=== PATIENT | female | born 1970 | race Caucasian/White ===

== ENCOUNTER 2016-12-30 15:21 | Emergency (ER) | payer BC, MEDICAID ==
--- NOTE | 2016-12-30 15:37 | ER Document Report ---
HPI - HPI Patient complains to provider of: right sided sciatica Onset: Other - 6 years Onset/Duration: Persistent Quality of pain: Achy, Burning, Throbbing Pain Level: 4 Context: 46-year-old female who moved here and is complaining of right sided sciatica that she has had for 6 years. Her chronic pain benefits manager prescribes 90 oxycodone 7.5 mg monthly from [place] that she ran out of early. There is no saddle anesthesia. No IV drug use. No fever or chills. Associated Symptoms: None Exacerbated by: Walking Relieved by: Other - She states is 7.5 mg oxycodone she is now having to take 4 times a day and that's why she ran out early Similar symptoms previously: Yes Recently seen / treated by doctor: No - November 06 - ROS ROS below otherwise negative: Yes Systems Reviewed and Negative: Yes All other systems reviewed and negative - DERM Skin Color: Normal, [place] Past Medical History - General Information source: Patient - Social History Smoking Status: Current Every Day Smoker Frequency of alcohol use: None Drug Abuse: None Lives with: Spouse/Significant other Family History: Reviewed & Not Pertinent Renal/ Medical History: Denies: Hx Peritoneal Dialysis Musculoskeltal Medical History: Reports Other - Chronic back pain with right sided sciatica Surgical Hx: Negative Vertical Provider Document - CONSTITUTIONAL Agree With Documented VS: Yes General Appearance: Mild Distress - INFECTION CONTROL TRAVEL OUTSIDE OF THE [place] IN LAST 30 DAYS: No - HEENT HEENT: Normocephalic - NECK Neck: Supple - RESPIRATORY Respiratory: Breath Sounds Normal, No Respiratory Distress O2 Sat by Pulse Oximetry: 96 - CARDIOVASCULAR Cardiovascular: Regular Rate, Regular Rhythm - GI/ABDOMEN Gastrointestinal: Abdomen Soft, Abdomen Non-Tender - BACK Back: Normal Inspection Notes: Tender over the right sacral iliac joint and right mid buttocks - MUSCULOSKELETAL/EXTREMETIES Musculoskeletal/Extremeties: MAEW, FROM, Tender - See above - NEURO Level of Consciousness: Awake, Alert, Appropriate Motor/Sensory: No Motor Deficit, No Sensory Deficit Deep Tendon Reflexes: 2+ - Bilateral ankle and patellar - DERM Integumentary: Warm, Dry, No Rash Course - Re-evaluation Re-evalutation: 12/30/16 16:24 I got the patient to walk and bear weight on her right leg although she walks bent forward with a slow deliberate gait. She states this is not abnormal. - Vital Signs Vital signs: Temp Pulse Resp BP Pulse Ox 97.8 F 123 H 18 108/89 H 96 12/30/16 15:28 12/30/16 15:28 12/30/16 15:28 12/30/16 15:28 12/30/16 15:28 Discharge - Discharge Clinical Impression: chronic back pain Sciatica Qualifiers: Laterality: right Qualified Code(s): M54.31 - Sciatica, right side Condition: Good Instructions: Chronic Back Pain ([facility]), Family Physicians / Practices, Muscle Relaxers ([facility]), Pain Management, Pain Medication Injection ([facility]), Sciatica ([facility]) , Steroid Medication Additional Instructions: warm compress to er any concerns we do not treat chronic pain in the ER please call your pain management dr in [facility] and explain that you ran out early due to increased pain and had to take 4 per day, get appt earlier than January 06. referral to dr. de la rosa her in [place] since you are moving here, get appt as soon as possible, number given on dc instructions Please complete the patient satisfaction survey if you get one, and return it.. If you do not receive a survey, then you can go to the [facility] website, [email or web address] and place your comments about your very good care. Thank you very much. It was a pleasure being your medical provider today. Prescriptions: Methocarbamol [Robaxin 750 mg Tablet] 750 mg PO Q4 #40 tablet Prednisone [Deltasone 10 mg Tablet] 10 mg PO ASDIR PRN #21 tablet PRN Reason: Tramadol HCl [Ultram 50 mg Tablet] 50 mg PO ASDIR PRN #20 tablet PRN Reason: Referrals: GURPREET DE LA ROSA MD [ACTIVE STAFF] - Follow up as needed
[2016-12-30] MEDS ORDERED: ONDANSETRON 4 MG TAB.RAPDIS PO ONE (15:49)
[2016-12-30] MEDS ORDERED: HYDROMORPHONE HCL INJ/PF 2 MG/ML AMPULE IM ONE (15:49)
[2016-12-30] MEDS ORDERED: PREDNISONE 20 MG TABLET PO ONE (16:21)
[2016-12-30 16:39] VITALS: BP 110/70
== END 2016-12-30 16:39 | disposition home or self-care (01) ==
LOC: ER 15:21
DX: M54.41 Lumbago with sciatica, right side (principal); G89.29 Other chronic pain; M54.9 Dorsalgia, unspecified; F17.200 Nicotine dependence, unspecified, uncomplicated
CPT/HCPCS: 99283; 96372; S0119; J1170; J7512

== ENCOUNTER 2017-01-04 20:45 | Emergency (ER) | payer SELFPAY ==
[2017-01-04] MEDS ORDERED: FENTANYL CITRATE INJ/PF 100 MCG/2 ML AMPUL IV ONE (23:49)
[2017-01-04] MEDS ORDERED: DEXAMETHASONE SOD PHOS INJ 10 MG/1 ML VIAL IV ONE (23:49)
--- NOTE | 2017-01-04 23:50 | ER Document Report ---
ED General - General Chief Complaint: Fall, R hip, leg and foot pain Stated Complaint: FALL,LEFT LEG PAIN,BACK PAIN Notes: Patient's 46-year-old female who presents with complaint of fall. Patient has a history of sciatica and pain in her right leg. Patient says that today she fell onto her right side and now has pain that shoots from her right hip into right leg. She will left on her chief complaint no; however, the patient shows me her pain is in her right hip and leg. She says she has a history of chronic pain issues with chronic sciatic nerve impingement on right side. She says since the fall she's unable to bear weight due to the pain. She denies any numbness and her leg. She says she has pains that shooting up and down the leg from the hip. No fevers. No infections. No history of surgery. She has not yet seen a surgeon about her pain. She says she is waiting for her Medicaid to come through. She is on pain management. She said she did take Neurontin as well as oxycodone prior to coming into the ER. No loss of bowel control. No urinary retention. No saddle anesthesia. No other complaints at this time. TRAVEL OUTSIDE OF THE [place]. IN LAST 30 DAYS: No - Related Data Allergies/Adverse Reactions: butorphanol [From Stadol] Allergy (Verified 12/30/16 16:05) Past Medical History - Social History Smoking Status: Unknown if Ever Smoked Frequency of alcohol use: None Drug Abuse: None Family History: Reviewed & Not Pertinent Renal/ Medical History: Denies: Hx Peritoneal Dialysis Past Surgical History: Reports: Hx Appendectomy, Hx Cholecystectomy, Hx Hysterectomy - Immunizations Hx Diphtheria, Pertussis, Tetanus Vaccination: Yes Review of Systems - Review of Systems Notes: My Normal Review Basic REVIEW OF SYSTEMS: CONSTITUTIONAL : Denies fever, chills, or sweats. Denies recent illness. RESPIRATORY: Denies cough, cold, or chest congestion. Denies shortness of breath, difficulty breathing, or wheezing. GASTROINTESTINAL: Denies abdominal pain. Denies nausea, vomiting, or diarrhea. Denies constipation. Last BM: GENITOURINARY: Denies difficulty urinating, painful urination, burning, frequency, or blood in urine. MUSCULOSKELETAL: Back pain SKIN: Denies rash or skin lesions. NEUROLOGICAL: Denies altered mental status or loss of consciousness. Denies headache. Denies weakness or paralysis or loss of use of either side. Denies problems with gait or speech. Denies sensory or motor loss. ALL OTHER SYSTEMS REVIEWED AND NEGATIVE. Physical Exam - Notes Notes: General Appearance: Well nourished, alert, cooperative, no acute distress, moderate to severe obvious discomfort. Vitals: reviewed, See vital signs table. Head: no swelling or tenderness to the head Eyes: PERRL, EOMI, Conjuctiva clear Mouth: No decreasd moisture Throat: No tonsillar inflammation, No airway obstruction, No lymphadenopathy Neck: Supple, no neck tenderness, No thyromegaly Lungs: No wheezing, No rales, No rhonci, No accessory muscle use, good air exchange bilaterally. Heart: Normal rate, Regular rythm, No murmur, no rub Back: Pain to palpation over the right gluteal area and right lower back. Abdomen: Normal BS, soft, No rigidity, No abdominal tenderness, No guarding, no rebound, no abdominal masses, no organomegaly Extremities: strength 5/5 in all extremities, good pulses in all extremities, patient assessment tenderness in the right leg seems neuropathic and that's where I touch on her right leg issues pain up into her head. She has good strength with plantar and dorsiflexion. She has good distal sensation., no edema. Skin: warm, dry, appropriate color, no rash Neuro: speech clear, oriented x 3, normal affect, responds appropriately to questions. Patellar and Achilles reflexes are 2 out of 4 on the right lower extremity. Course - Re-evaluation Re-evalutation: 01/05/17 02:45 Despite the fentanyl and ketamine patient still has a large amount of pain and is having a hard time being able to bear weight on her leg. She says that Dilaudid has helped some the past. She does not have any allergic reaction to this. I will try a dose of Dilaudid. - Transfer of Care Notes: 01/05/17 04:32 After patient's last dose of pain medicine by was able to go back and see that she was seen here just last week. I did notice in the provider's notes that the patient mentioned to the provider that she was out of her pain medications. I went back to speak with the patient. I asked her when her last prescription was. She did mention April 07. According to the narcotic database as correct. I asked her again when her last dose of oxycodone was. Patient said that it was this morning. I then proceeded to asked the patient how this was possible being that she told the other provider several days ago that she was out of her oxycodone. Patient then quickly changed her answer and said that she was actually confused and that she was actually out of her oxycodone that she did not take any today. My concern is that the patient may be being untruthful because when she first arrived she told me she took oxycodone and then again she really confirmed that she took oxycodone when I asked her again later. At this time patient has no signs of cauda equina syndrome. She has good strength in her lower extremities. She has no numbness. She has no loss of bowel control. No urinary retention. I feel she is safe to be discharged home. I informed her should follow-up with her pain management doctor for further pain control. We'll not give her any further pain control here. I will give her the number to the local neurosurgeon as she does request to see a back surgeon because her chronic back pain. I did give her the number to Dr. cruz, neurosurgeon in [place]. Patient encouraged return to ER shows leg weakness, leg numbness, loss of bowel control, or urinary retention. Dictation of this chart was performed using voice recognition software; therefore, there may be some unintended grammatical errors. Discharge - Discharge Clinical Impression: Sciatica Qualifiers: Laterality: right Qualified Code(s): M54.31 - Sciatica, right side Condition: Good Disposition: HOME, SELF-CARE Additional Instructions: LOW BACK PAIN: Three out of every four people will have an episode of disabling back pain during their lifetime. Most commonly the pain is due to straining of the muscles and ligaments in the low back. Usual treatment includes: (1) Rest on a firm surface. Avoid lying on your stomach. (2) Ice pack the painful area. After a few days, gentle heat may be used intermittently to relax the area, or ice packs can be continued. (3) Medication may be needed -- muscle relaxers and antiinflammatory medicines are commonly used. (4) As the back improves, exercises are prescribed to strengthen the back and abdominal muscles. Your doctor will advise you on the proper care for your back at each stage in your recovery. You may be better in a few days -- or healing may take several weeks. If new symptoms of a "herniated disc" (radiation of pain, numbness, or tingling down the back of the leg or weakness in the leg) occur, you should be re-examined. Further testing may be necessary. PAIN MEDICATION INJECTION: You have received an injection of a pain medication. You should experience significant pain relief within 45 minutes. If this injection was a narcotic -- it will impair your judgement, slow your reaction time and make you sleepy (as well as relieve your pain). Narcotics also can cause nausea. You should not drive, work with machinery, or perform any task requiring mental alertness until all effects of the medication are gone -- six to eight hours. Do not take any alcohol, or sedatives, and do not take any other medication without checking with your physician. ICE PACKS: Apply ice packs frequently against the painful area. Many different schedules are recommended, such as "20 minutes on, 20 minutes off" or "one hour ice, two hours rest." If you need to work, you may need to go longer between ice treatments. You should plan to have the area ice packed AT LEAST one fourth of the time. The ice should be applied over the wrap, tape, or splint, or over a layer of cloth -- not directly against the skin. Some ice bags have a built-in cloth and can be put directly on the skin. WARM PACKS: After approximately two days, apply gentle heat (such as a heating pad or hot water bottle) for about 20 to 30 minutes about every two hours -- at least four times daily. Warmth and elevation will help you make a more rapid recovery , and will ease the pain considerably. Do not use HOT heat, and never apply heat for longer than 30 minutes. The continuous heat can invisibly damage skin and muscles -- even when no burn is seen on the surface. Damaged muscles can make you MORE sore. FOLLOW-UP CARE: If you have been referred to a physician for follow-up care, call the physician s office for an appointment as you were instructed or within the next two days. If you experience worsening or a significant change in your symptoms, notify the physician immediately or return to the Emergency Department at any time for re-evaluation. Please return to the ER if you have leg weakness, new leg numbness, loss of bowel control, or inability to urinate. Please follow up with the neurosurgeon, Dr. Cruz, about your chronic recurrent back pain. Forms: Return to Work Referrals: HARDY CRUZ MD [NO LOCAL MD] - Follow up in 3-5 days
[2017-01-05] MEDS ORDERED: KETAMINE HCL INJ 500 MG/10 ML VIAL IV ONE (01:58)
[2017-01-05] MEDS ORDERED: HYDROMORPHONE HCL INJ/PF 2 MG/ML AMPULE IV ONE (02:45)
[2017-01-05 04:47] VITALS: BP 101/70
== END 2017-01-05 04:45 | disposition home or self-care (01) ==
LOC: ER 20:45
DX: M54.41 Lumbago with sciatica, right side (principal); W19.XXXA Unspecified fall, initial encounter; G89.29 Other chronic pain; Z79.899 Other long term (current) drug therapy; Z88.5 Allergy status to narcotic agent; Z79.891 Long term (current) use of opiate analgesic
CPT/HCPCS: 99284; 96374; 96375; 73502; 72131; J3010; J3490; J1170; J1100

== ENCOUNTER 2017-02-09 13:45 | Emergency (ER) | payer SELFPAY ==
--- NOTE | 2017-02-09 14:24 | ER Document Report ---
ED Medical Screen (RME) - General TRAVEL OUTSIDE OF THE U.S. IN LAST 30 DAYS: No <SINDY RIOS - Last Filed: 02/09/17 14:29> <DEYA PALACIOS Cierra - Last Filed: 03/23/17 20:32> - General Chief Complaint: Neck Problem Stated Complaint: THROAT PAIN,CHEST PAIN Notes: Patient is a 46 year old female presenting to the emergency department for chest and neck pain. Patient states she "feels like someone punched her" in the neck/chest. Patient also complains that the area is red and hot. Patient also has a tightness in her throat/chest and becomes short of breath with her pain. Patient also complains of some sciatic nerve pain. Patient was seeing chronic pain management but states she cannot see them anymore since she is unable to work; her last visit was last month. Patient denies any nausea, vomiting or other symptoms. I have greeted and performed a rapid initial assessment of this patient. A comprehensive ED assessment and evaluation of the patient, analysis of test results and completion of the medical decision making process will be conducted by additional ED providers. (SINDY RIOS) - Related Data Allergies/Adverse Reactions: butorphanol [From Stadol] Allergy (Verified 02/09/17 13:52) Past Medical History Renal/ Medical History: Denies: Hx Peritoneal Dialysis Past Surgical History: Reports: Hx Appendectomy, Hx Cholecystectomy, Hx Hysterectomy - Immunizations Hx Diphtheria, Pertussis, Tetanus Vaccination: Yes <GABRIELMIGUELSINDY - Last Filed: 02/09/17 14:29> Physical Exam <GABRIELSINDY - Last Filed: 02/09/17 14:29> <DEYA PALACIOS - Last Filed: 03/23/17 20:32> - Vital signs Vitals: Temp Pulse Resp BP Pulse Ox 98.1 F 110 H 18 158/94 H 100 02/09/17 13:52 02/09/17 13:52 02/09/17 13:52 02/09/17 13:52 02/09/17 13:52 - Notes Notes: GENERAL: Alert, interacts well. No acute distress. NECK: Reproducible tenderness to palpation over left neck. No erythema. Full range of motion. Supple. Trachea midline. LUNGS: Reproducible tenderness over left anterior chest wall. Coarse breath sounds bilaterally, no wheezes, rales, or rhonchi. No respiratory distress. HEART: Regular rate and rhythm. No murmurs, gallops, or rubs. SKIN: Warm, dry, normal turgor. No rashes or lesions noted. (SINDY RIOS) Course - Laboratory Result Diagrams: 02/09/17 14:30 02/09/17 14:30 <DEYA PALACIOS - Last Filed: 03/23/17 20:32> - Vital Signs Vital signs: Temp Pulse Resp BP Pulse Ox 98.3 F 96 16 126/81 H 100 02/09/17 17:45 02/09/17 17:45 02/09/17 14:50 02/09/17 17:45 02/09/17 17:45 - Laboratory Laboratory results interpreted by me: 02/09/17 02/09/17 14:30 14:30 RBC 5.40 H Hgb 15.9 H Hct 47.7 H AST 70 H ALT 117 H Doctor's Discharge <SINDY RIOS - Last Filed: 02/09/17 14:29> <DEYA PALACIOS - Last Filed: 03/23/17 20:32> - Discharge Clinical Impression: Throat pain, Sciatica of right side Condition: Stable Disposition: HOME, SELF-CARE Additional Instructions: Return immediately for any new or worsening symptoms. Follow up with primary care provider, call tomorrow to make followup appointment. Prescriptions: Clindamycin HCl 300 mg PO TID #30 capsule Ibuprofen [Motrin 800 mg Tablet] 800 mg PO Q8H PRN #30 tab PRN Reason: Scribe Documentation - Scribe Written by Petrona:: Petrona Harris 02/09/17 14:28 acting as scribe for :: Gabbi <SINDY RIOS - Last Filed: 02/09/17 14:29>
[2017-02-09 14:51] LABS: ABSOLUTE BASOPHILS # (AUTO) 0.1 10^3/uL (0.0-0.2); ABSOLUTE EOSINOPHILS # (AUTO) 0.3 10^3/uL (0.0-0.6); ABSOLUTE LYMPHOCYTES (AUTO) 1.4 10^3/uL (0.5-4.7); ABSOLUTE MONOCYTES (AUTO) 0.4 10^3/uL (0.1-1.4); ABSOLUTE NEUT (AUTO) 6.1 10^3/uL (1.7-8.2); BASOPHILS % (AUTO) 0.9 % (0-2); EOSINOPHILS % (AUTO) 4.1 % (0-6); HEMATOCRIT 47.7 % (36.0-47.0); HEMOGLOBIN 15.9 g/dL (12.0-15.5); LYMPHOCYTES % (AUTO) 16.9 % (13-45); MEAN CORPUSCULAR HEMOGLOBIN 29.4 pg (27.0-33.4); MEAN CORPUSCULAR HGB CONC 33.3 g/dL (32.0-36.0); MEAN CORPUSCULAR VOLUME 88 fl (80-97); MONOCYTES % (AUTO) 4.7 % (3-13); RED CELL DISTRIBUTION WIDTH 13.7 % (11.5-14.0); SEGMENTED NEUTROPHILS % (AUTO) 73.4 % (42-78); WHITE BLOOD COUNT 8.3 10^3/uL (4.0-10.5)
--- NOTE | 2017-02-09 15:03 | RADIOLOGY REPORT (SQ) ---
EXAM DESCRIPTION: CHEST PA/LAT COMPLETED DATE/TIME: 02/09/2017 2:47 pm REASON FOR STUDY: Chest Pain COMPARISON: None. TECHNIQUE: Frontal and lateral radiographic views of the chest acquired. NUMBER OF VIEWS: Two view. LIMITATIONS: None. FINDINGS: LUNGS AND PLEURA: No opacities, masses or pneumothorax. No pleural effusion. Incidentally noted is an azygos fissure. MEDIASTINUM AND HILAR STRUCTURES: No masses or contour abnormalities. HEART AND VASCULAR STRUCTURES: Heart normal size. No evidence for failure. BONES: No acute findings. HARDWARE: None in the chest. OTHER: No other significant finding. IMPRESSION: NO SIGNIFICANT RADIOGRAPHIC FINDING IN THE CHEST. TECHNICAL DOCUMENTATION: JOB ID: [id number] [employer]- All Rights Reserved
[2017-02-09] MEDS ORDERED: KETOROLAC TROMETHAMINE INJ/PF 30 MG/1 ML SDV IV ONE (15:07)
[2017-02-09] MEDS ORDERED: DIPHENHYDRAMINE HCL 50 MG/ML VIAL IV ONE (15:07)
[2017-02-09] MEDS ORDERED: NORMAL SALINE 1000 ML 1,000 ML IV ONE (15:07)
--- NOTE | 2017-02-09 15:08 | ER Document Report ---
ED Neck/Back Problem - General Chief Complaint: Neck Problem Stated Complaint: THROAT PAIN,CHEST PAIN Time Seen by Provider: 02/09/17 14:13 Mode of Arrival: Ambulatory Information source: Patient Notes: Is a 46-year-old female who presents to the ER today for throat pain, chest pain , "hot feeling" on the left side of her face down her neck, wrapping around the right side at the back of her neck 1 day. she states that the throat pain and chest pain are tender To touch over her skin. Patient denies any new medications, foods, detergents, clothing or anything new that she knows of. She denies Fever, chills. She denies any shortness of breath or stridor, trouble breathing. She also complains of chronic Left-sided sciatica pain.She states that she stopped seeing her pain management last month because she no longer has insurance she denies any history of heart attack or stroke. TRAVEL OUTSIDE OF THE [place] IN LAST 30 DAYS: No - Related Data Allergies/Adverse Reactions: butorphanol [From Stadol] Allergy (Verified 02/09/17 13:52) Past Medical History - General Information source: Patient - Social History Smoking Status: Current Every Day Smoker Family History: Reviewed & Not Pertinent Patient has suicidal ideation: No Patient has homicidal ideation: No Renal/ Medical History: Denies: Hx Peritoneal Dialysis Past Surgical History: Reports: Hx Appendectomy, Hx Cholecystectomy, Hx Hysterectomy - Immunizations Hx Diphtheria, Pertussis, Tetanus Vaccination: Yes Review of Systems - Review of Systems Constitutional: No symptoms reported EENT: See HPI Cardiovascular: See HPI Respiratory: No symptoms reported Gastrointestinal: No symptoms reported Genitourinary: No symptoms reported Female Genitourinary: No symptoms reported Musculoskeletal: No symptoms reported Skin: See HPI Hematologic/Lymphatic: No symptoms reported Neurological/Psychological: No symptoms reported Physical Exam - Vital signs Vitals: Temp Pulse Resp BP Pulse Ox 98.1 F 110 H 18 158/94 H 100 02/09/17 13:52 02/09/17 13:52 02/09/17 13:52 02/09/17 13:52 02/09/17 13:52 - Notes Notes: PHYSICAL EXAMINATION: GENERAL: Very anxious, shaking legs constantly and tearful, but in no acute distress. HEAD: Atraumatic, normocephalic. EYES: Pupils equal round and reactive to light, extraocular movements intact, sclera anicteric, conjunctiva are normal. ENT: ear canals without erythema or foreign body, TMs pearly vanegas with good bony landmarks, nares patent, oropharynx clear without exudates, tonsils not enlarged. Moist mucous membranes. Airway patent NECK: Normal range of motion, supple without lymphadenopathy LUNGS: CTAB and equal. No wheezes rales or rhonchi. HEART: Regular rate and rhythm without murmurs ABDOMEN: Soft, no tenderness. No guarding, no rebound BACK: Right SI joint tenderness, left SI joint tenderness, no vertebral tenderness, normal ROM GI/: no CVA tenderness EXTREMITIES: Normal range of motion, no pitting edema. No cyanosis. NEUROLOGICAL: Cranial nerves grossly intact. Normal sensory/motor exams. PSYCH: Normal mood, normal affect. SKIN: Warm, Dry, normal turgor, patient does have a mild erythematous rash consistent with eczema over her neck bilaterally and anteriorly with excoriation present Course - Re-evaluation Re-evalutation: 02/09/17 16:58 At this point patient has received IV clindamycin, racemic epi, IV Decadron, IV fluids, Benadryl, Toradol, for her symptoms and states "I am feeling no better, exactly the same." Soft tissue neck x-ray reported possible epiglottitis. She is having no stridor or difficulty breathing, appeared extremely anxious. 02/09/17 16:59 Her lab work is all unremarkable today including a normal white blood cell count. 02/09/17 17:37 Valium finally calmed patient down and she states that she feels better would like to go home. I am not entirely sure clinically what is going on with her today as I see no obvious signs of stridor, shortness of breath, or trouble breathing, redness or swelling in her throat. She is afebrile. The only clinical symptom I really found today with a rash on her neck. I am treating her for epiglottitis just to be on the safe side because of soft tissue neck reported that it was a possibility and she did come in for throat pain. She did receive medications today for that and states that she does feel better now. I will send her home on clindamycin. Her vitals have been normal and she has been stable here in the emergency department. - Vital Signs Vital signs: Temp Pulse Resp BP Pulse Ox 98.1 F 110 H 16 158/94 H 100 02/09/17 13:52 02/09/17 13:52 02/09/17 14:50 02/09/17 13:52 02/09/17 13:52 - Laboratory Result Diagrams: 02/09/17 14:30 02/09/17 14:30 Laboratory results interpreted by me: 02/09/17 02/09/17 14:30 14:30 RBC 5.40 H Hgb 15.9 H Hct 47.7 H AST 70 H ALT 117 H Discharge - Discharge Clinical Impression: Throat pain, Sciatica, right side Condition: Stable Disposition: HOME, SELF-CARE Additional Instructions: Return immediately for any new or worsening symptoms. Follow up with primary care provider, call tomorrow to make followup appointment. Prescriptions: Clindamycin HCl 300 mg PO TID #30 capsule Ibuprofen [Motrin 800 mg Tablet] 800 mg PO Q8H PRN #30 tab PRN Reason:
[2017-02-09 15:13] LABS: ALANINE AMINOTRANSFERASE 117 U/L (9-52); ALBUMIN 4.3 g/dL (3.5-5.0); ALKALINE PHOSPHATASE 105 U/L (38-126); ANION GAP 9 (5-19); ASPARTATE AMINO TRANSFERASE 70 U/L (14-36); BILIRUBIN,DIRECT 0.3 mg/dL (0.0-0.4); BILIRUBIN,TOTAL 0.4 mg/dL (0.2-1.3); BLOOD UREA NITROGEN 14 mg/dL (7-20); CALCIUM 9.6 mg/dL (8.4-10.2); CARBON DIOXIDE 27 mmol/L (22-30); CHLORIDE 107 mmol/L (98-107); CREATINE KINASE 41 U/L (30-135); GLUCOSE 82 mg/dL (75-110); POTASSIUM 4.6 mmol/L (3.6-5.0); SODIUM 143.3 mmol/L (137-145); TOTAL PROTEIN 7.2 g/dL (6.3-8.2)
[2017-02-09 15:27] LABS: CREATINE KINASE MB < 0.22 ng/mL (<4.55); TROPONIN I < 0.012 ng/mL
--- NOTE | 2017-02-09 15:43 | RADIOLOGY REPORT (SQ) ---
EXAM DESCRIPTION: SOFT TISSUE NECK COMPLETED DATE/TIME: 02/09/2017 3:22 pm REASON FOR STUDY: throat pain, feeling of something stuck COMPARISON: None. NUMBER OF VIEWS: Two views. TECHNIQUE: AP and lateral radiographic image of the soft tissues of the neck. LIMITATIONS: None. FINDINGS: EPIGLOTTIS: On the lateral view, the oropharynx hypopharynx and laryngeal airway is not se en. This is either due to the patient's swelling during the exposure or bearing down during the expo sure, or due to diffuse supraglottic airway swelling. This finding was discussed with Kristina Live PA-C in the emergency room, 1530 hours 02/09/2017. PREVERTEBRAL SOFT TISSUES: Normal. No soft tissue swelling. SUBGLOTTIC AREA: Normal. No narrowing. RETROPHARYNGEAL SPACE: Normal. No soft tissue masses. BONY STRUCTURES: Disc space loss of height with mild anterior and posterior osteophyte formation at C 6-7 LUNG APICES: Normal. OTHER: No radiopaque foreign body. No other significant finding. IMPRESSION: On the lateral view, there is poor visualization of the oropharynx hypopharynx and supra glottic laryngeal airway. It is difficult to discern if the patient has diffuse airway supraglottic edema or swelling, or if this exposure was taken during swallowing. Findings were discussed with the patient's caregiver in the emergency room. TECHNICAL DOCUMENTATION: JOB ID: [id number] [employer]- All Rights Reserved
[2017-02-09] MEDS ORDERED: DEXAMETHASONE SOD PHOS INJ 10 MG/1 ML VIAL IV ONE (15:55)
[2017-02-09] MEDS ORDERED: RACEPINEPHRINE HCL 2.25% NEB 0.5 ML AMPUL NEB ONE (15:55)
[2017-02-09] MEDS ORDERED: CLINDAMYCIN 300 MG/D5W RTU 50 ML IV ONE (16:05)
[2017-02-09] MEDS ORDERED: DIAZEPAM INJ 10 MG/2 ML DISP.SYRIN IV ONE (16:57)
--- NOTE | 2017-02-09 17:16 | EKG REPORT ---
SEVERITY:- BORDERLINE ECG - SINUS RHYTHM PROBABLE LEFT ATRIAL ABNORMALITY : Confirmed by: Marta Lucero MD 09-Feb-2017 17:15:04
[2017-02-09 18:12] VITALS: BP 126/81
== END 2017-02-09 18:12 | disposition home or self-care (01) ==
LOC: ER 13:45
DX: M54.31 Sciatica, right side (principal); M54.2 Cervicalgia; R07.0 Pain in throat; R07.9 Chest pain, unspecified; R51 Headache; F17.200 Nicotine dependence, unspecified, uncomplicated
CPT/HCPCS: 93005; 94640; 99284; 96375; 96365; 36415; 82553; 82550; 85025; 80053; 84484; 71020; 70360; 93010; J3490 ×2; J3360; J1200; J1885; J7030; J1100

== ENCOUNTER 2018-06-26 20:22 | Emergency (ER) | payer SELFPAY ==
[2018-06-26] MEDS ORDERED: KETOROLAC TROMETHAMINE 60 MG/2 ML SDV IM ONE (21:21)
[2018-06-26] MEDS ORDERED: METHOCARBAMOL 750 MG TABLET PO ONE (21:22)
--- NOTE | 2018-06-26 21:56 | RADIOLOGY REPORT (SQ) ---
EXAM DESCRIPTION: XR HIP 2 OR MORE VIEWS COMPLETED DATE/TME: 06/26/2018 21:20 CLINICAL HISTORY: 47 years, Female, Pain Findings: Bony alignment is anatomic. No fracture or dislocation. Soft tissues are unremarkable. IMPRESSION: No fracture of right hip or pelvis.
--- NOTE | 2018-06-26 22:03 | RADIOLOGY REPORT (SQ) ---
EXAM DESCRIPTION: XR SACRUM COCCYX 2 OR MORE VIEWS COMPLETED DATE/TME: 06/26/2018 21:20 CLINICAL HISTORY: 47 years, Female, Pain Findings: Bony alignment is anatomic. No fracture or dislocation. SI joints are preserved. Soft tissues are unremarkable. IMPRESSION: No fracture.
--- NOTE | 2018-06-26 22:03 | RADIOLOGY REPORT (SQ) ---
EXAM DESCRIPTION: XR LUMBAR SPINE ANTEROPOSTERIOR, LATERAL, AND OBLIQUES COMPLETED DATE/TME: 06/26/2018 21:20 CLINICAL HISTORY: 47 years, Female, Pain Findings: Vertebral body heights are intact. Alignment is intact. No subluxation. Mild degenerative changes at L5-S1. IMPRESSION: Mild degenerative changes. No fracture.
--- NOTE | 2018-06-26 22:53 | ER Document Report ---
ED General - General Chief Complaint: Back Pain Stated Complaint: BACK PAIN Time Seen by Provider: 06/26/18 21:08 Mode of Arrival: Ambulatory Information source: Patient, Relative Notes: Patient is a 47-year-old female comes emergency room complaining of multiple pains in the low back and hip area. She denies any recent traumatic events that she can think of. States is been going on for several days but worse the past 2 states that when she turns a certain way she can feel vertebrae moving around in her buttocks area and low back. Psych they are moving out of joint. She states she has a history of issues with sciatica but this feels nothing like that. Most of her pain and discomfort is in the sacral area and radiating to the lower lumbar spine area. She states when she sits in a certain position feels her vertebrae pop. She currently denies any other medical problems. She has no PCP currently. Patient denies any loss of urine or stool. TRAVEL OUTSIDE OF THE [place] IN LAST 30 DAYS: No - HPI Onset: Other - 4-5 days. Onset/Duration: Sudden, Persistent, Worse Quality of pain: Achy, Pressure, Sharp, Stabbing Pain Level: 3 Associated symptoms: Body/muscle aches Exacerbated by: Movement, Other - Palpation Relieved by: Denies Similar symptoms previously: No Recently seen / treated by doctor: No - Related Data Allergies/Adverse Reactions: butorphanol [From Stadol] Allergy (Verified 06/26/18 20:49) Past Medical History - General Information source: Patient - Social History Smoking Status: Current Some Day Smoker Cigarette use (# per day): Yes Chew tobacco use (# tins/day): No Smoking Education Provided: Yes Frequency of alcohol use: Rare Family History: Reviewed & Not Pertinent Patient has suicidal ideation: No Patient has homicidal ideation: No Renal/ Medical History: Denies: Hx Peritoneal Dialysis Past Surgical History: Reports: Hx Abdominal Surgery - liver lac repair, Hx Appendectomy, Hx Cholecystectomy, Hx Hysterectomy - Immunizations Hx Diphtheria, Pertussis, Tetanus Vaccination: Yes Review of Systems - Review of Systems Constitutional: No symptoms reported EENT: No symptoms reported Cardiovascular: No symptoms reported Respiratory: No symptoms reported Gastrointestinal: No symptoms reported Genitourinary: No symptoms reported Female Genitourinary: No symptoms reported Musculoskeletal: Back pain, Muscle pain Skin: No symptoms reported Hematologic/Lymphatic: No symptoms reported Neurological/Psychological: No symptoms reported Physical Exam - Vital signs Vitals: Temp Pulse Resp BP Pulse Ox 98.7 F 119 H 12 144/100 H 97 06/26/18 20:29 06/26/18 20:29 06/26/18 20:29 06/26/18 20:29 06/26/18 20:29 Interpretation: Hypertensive, Tachycardic - Notes Notes: Patient is a well-nourished well-developed anxious 47-year-old who appears much older than her stated age. She does appear uncomfortable. - General General appearance: Alert, Anxious In distress: None - HEENT Head: Normocephalic, Atraumatic Eyes: Normal - Respiratory Respiratory status: No respiratory distress Chest status: Nontender Breath sounds: Normal. No: Rales, Rhonchi, Stridor, Wheezing, Other Chest palpation: Normal - Cardiovascular Rhythm: Tachycardia Murmur: No - Abdominal Inspection: Normal Distension: No distension Bowel sounds: Normal Tenderness: Nontender Organomegaly: No organomegaly Adult front & back diagram: 1 - Area of most pain 2 - Area secondary pain and hyper exaggerated response to light touch - Back Back: Tender, Deformity/step-off, CVA tenderness, Vertebra tenderness, Other - Examination of patient's back. Difficult to give an accurate description paper has a hyper exaggerated response to light touch especially in the left low back region just above the left hip. Light touch seems to set her off I did check the skin area for any type of lesions for herpes zoster and there was nothing external that I can see and I really was not sensitive as it was hyper response to moderate to light push and probing. Patient's DTRs are normal she has a good vascular exam but laterally lower extremities. Good strength in the lower extremities to resistance.. No: Nontender - Extremities General upper extremity: Normal inspection, Nontender, Normal ROM, Normal strength General lower extremity: Normal inspection, Nontender, Normal ROM, Normal strength, Normal weight bearing Hip: Tender, Pain with ROM. No: Deformity, Dislocation, Ecchymosis, Instability , Laceration, Unable to bear weight Course - Vital Signs Vital signs: Temp Pulse Resp BP Pulse Ox 98.7 F 119 H 12 144/100 H 97 06/26/18 20:29 06/26/18 20:29 06/26/18 20:29 06/26/18 20:29 06/26/18 20:29 Discharge - Discharge Clinical Impression: Spasm of muscle of lower back, Hypersensitive neuropathy Lumbosacral strain Qualifiers: Encounter type: initial encounter Qualified Code(s): S39.012A - Strain of muscle, fascia and tendon of lower back, initial encounter Condition: Stable Disposition: HOME, SELF-CARE Instructions: Ice Packs ([facility]), Low Back Pain ([facility]), Muscle Relaxers ([facility]), Muscle Strain ([facility]), Oral Narcotic Medication ([facility]), Warm Packs ([facility]) Additional Instructions: At this point I cannot take exactly what is going on with your hypersensitive reaction to physical exam. The x-rays are all negative for any type of fractures or malalignments you will need to see an orthopedic doctor for further intervention or diagnostic interventions. I do know that anything tonight is not life-threatening and we can try to treat the symptomatology. You have not lost any urine or stool nor function of bowel or bladder. You have normal strength in the lower extremities so this time we are going to try treating this as a different presentation of sciatica. We will place you on the pain medication that we gave you in the emergency room tonight I am going to write you for a steroid taper and the muscle relaxer. Hopefully with 1 of the 3 you will get some relief. Ice to the low back and the parts that hurt 3 times a day. Light stretching starting tomorrow. Contact the orthopedics set up given you [employer] consultant and see if he can accommodate you. Should all else fail you can also try the community clinic. And then as always return to ER for recheck. Prescriptions: Methocarbamol [Robaxin 750 mg Tablet] 750 mg PO ASDIR PRN #20 tablet PRN Reason: Prednisone [Sterapred Ds] 10 mg PO ASDIR PRN 6 Days #1 tab.ds.pk PRN Reason:
[2018-06-26] MEDS ORDERED: HYDROCODONE/ACETAMINOPHEN 5-325 MG (6 TAB/ER DISP) PO PRN (23:03)
[2018-06-26 23:14] VITALS: BP 137/82
== END 2018-06-26 23:31 | disposition home or self-care (01) ==
LOC: ER 20:22
DX: S39.012A Strain of muscle, fascia and tendon of lower back, initial encounter (principal); M62.830 Muscle spasm of back; F17.210 Nicotine dependence, cigarettes, uncomplicated; X58.XXXA Exposure to other specified factors, initial encounter
CPT/HCPCS: 99283; 96372; 72220; 73502; 72110; J1885; J3490

== ENCOUNTER 2018-10-10 11:03 | Emergency (ER) | payer SELFPAY ==
[2018-10-10] MEDS ORDERED: IPRATROPIUM/ALBUTEROL 0.5-2.5 MG/3 ML AMPUL NEB ONE (11:37)
[2018-10-10] MEDS ORDERED: IBUPROFEN 800 MG TABLET PO ONE (11:37)
[2018-10-10] MEDS ORDERED: AMOXICILLIN TRIHYDRATE 500 MG CAPSULE PO ONE (11:37)
[2018-10-10] MEDS ORDERED: PREDNISONE 20 MG TABLET PO ONE (11:37)
--- NOTE | 2018-10-10 11:40 | ER Document Report ---
HPI - HPI Time Seen by Provider: 10/10/18 11:31 Onset: Last week Onset/Duration: Persistent Quality of pain: Achy Pain Level: 4 Context: Patient presents complaining of a one-week history of fever cough congestion sore throat. Patient reports cough has been nonproductive. Ear pain started yesterday. Associated Symptoms: Nonproductive cough, Earache, Rhinnorhea Exacerbated by: Denies Relieved by: Denies Similar symptoms previously: No Recently seen / treated by doctor: No - ROS ROS below otherwise negative: Yes Systems Reviewed and Negative: Yes All other systems reviewed and negative - CONSTITUTIONAL Constitutional: REPORTS: Chills - EENT EENT: REPORTS: Sore Throat, Ear Pain, Nasal Drainage-Clear, Congestion - CARDIOVASCULAR Cardiovascular: DENIES: Chest pain - RESPIRATORY Respiratory: REPORTS: Coughing - GASTROINTESTINAL Gastrointestinal: DENIES: Patient vomiting - REPRODUCTIVE Reproductive: DENIES: : - DERM Skin Color: Normal Skin Problems: None Past Medical History - General Information source: Patient - Social History Smoking Status: Current Every Day Smoker Smoking Education Provided: Yes Frequency of alcohol use: None Drug Abuse: None Occupation: food and beverage attendant Family History: Reviewed & Not Pertinent Renal/ Medical History: Denies: Hx Peritoneal Dialysis Musculoskeletal Medical History: Reports Other - Degenerative disc disease, sciatica, scoliosis Past Surgical History: Reports: Hx Abdominal Surgery - liver lac repair, Hx Appendectomy, Hx Cholecystectomy, Hx Hysterectomy - Immunizations Hx Diphtheria, Pertussis, Tetanus Vaccination: Yes Vertical Provider Document - CONSTITUTIONAL Agree With Documented VS: Yes Exam Limitations: No Limitations General Appearance: WD/WN, No Apparent Distress - INFECTION CONTROL TRAVEL OUTSIDE OF THE [place] IN LAST 30 DAYS: No - HEENT HEENT: Atraumatic, Normocephalic, Tympanic Membrane Red - left, Tympanic Membrane Bulging - left. negative: Pharyngeal Exudate, Pharyngeal Tenderness, Pharyngeal Erythema - NECK Neck: Normal Inspection, Supple. negative: Lymphadenopathy-Left, Lymphadenopathy-Right - RESPIRATORY Respiratory: No Respiratory Distress, Chest Non-Tender, Wheezing - scattered - CARDIOVASCULAR Cardiovascular: Regular Rate, Regular Rhythm, No Murmur - BACK Back: Normal Inspection - MUSCULOSKELETAL/EXTREMETIES Musculoskeletal/Extremeties: PRIMO MCKOY - NEURO Level of Consciousness: Awake, Alert, Appropriate Motor/Sensory: No Motor Deficit - DERM Integumentary: Warm, Dry Course - Re-evaluation Re-evalutation: 10/10/18 11:38 Respirations even unlabored, patient nontoxic in appearance. Will cover with amoxicillin for otitis media. 10/10/18 12:05 Wheezing improved, patient does have rhonchi with cough. No concern for pneumonia at this time. Patient advised of worsening symptoms that she should return immediately for. - Vital Signs Vital signs: Temp Pulse Resp BP Pulse Ox 97.6 F 86 16 132/85 H 93 10/10/18 11:28 10/10/18 11:28 10/10/18 11:28 10/10/18 11:28 10/10/18 11:28 Discharge - Discharge Clinical Impression: Wheezing Upper respiratory infection Qualifiers: URI type: unspecified URI Qualified Code(s): J06.9 - Acute upper respiratory infection, unspecified Otitis media Qualifiers: Otitis media type: unspecified Chronicity: acute Qualified Code(s): H66.90 - Otitis media, unspecified, unspecified ear Condition: Good Disposition: HOME, SELF-CARE Instructions: Amoxicillin ([facility]), Otitis Media ([facility]) Additional Instructions: Return immediately for any new or worsening symptoms Followup with your primary care provider, call tomorrow to make a followup appointment UPPER RESPIRATORY ILLNESS: You have a viral infection of the respiratory passages -- a "cold." This common infection causes nasal congestion, drainage, and often sore throat and cough. It is highly contagious. The disease usually lasts about 10 to 14 days. There is no "cure" for the viral infection -- it must run its course. If there is a complication, such as bacterial infection in the nose, sinuses, middle ear, or bronchial tubes, antibiotics may be required. The antibiotics won't affect the virus. Drink plenty of fluids. A humidifier may help. An expectorant medication or decongestant may make you more comfortable. Use acetaminophen or ibuprofen for fever or aches. See the doctor if fever persists over two days, if there is any significant worsening of your symptoms, or if you simply fail to improve as expected. BRONCHOSPASM: You have tightness in the bronchial tubes, called bronchospasm. This often occurs with bronchial infections. Allergies, inhaled chemicals, and polluted or cold air can also provoke bronchospasm. It's more likely in patients with asthma in the family. Emergency treatment of bronchospasm may include adrenaline shots or bronchodilator aerosol. You may feel lightheaded and have a rapid pulse for an hour or two. Rest and get plenty of fluids. At home, we'll treat you with a bronchodilator inhaler. Antibiotics and corticosteroids may be required for some patients. Until you recover, avoid chemical fumes, dusts, pollens, and exercising in very cold or dry air. If you smoke, stop now!! If you develop a fever, increased wheezing, chest pain, or severe shortness of breath, you should contact the doctor immediately. INHALED BRONCHODILATORS: You have received a treatment of and/or prescription for an inhaled bronchodilator -- a medication which stimulates the airways in the lung to dilate. This improves the flow of air in asthma, bronchitis, and emphysema. These medicines have some similarity to adrenaline, and can cause similar side effects: shakiness, racing heart, and a sense of nervousness. These side effects decrease with time. Contact your doctor if these side effects are se cherie. Do not over-use the medicine. Too-frequent use of the inhaler may make it ineffective. Call your doctor if the inhaler is not controlling your symptoms at the prescribed doses. STEROID MEDICATION: You have been given an injection of or oral medicine of the cortisone/steroid class. This medication is used to control inflammation or allergy. Devonte t is usually only given for a short period of time, until the acute process subsides. There are usually no side effects from short-term use of cortisone-like medications. Some persons feel an increased sense of well-being and are not sleepy at bedtime. Long-term use of cortisone medications is best avoided, unless required for a severe condition. If your condition does not remit, or relapses after the course of corticosteroid medication, you should consult your physician. USE OF ACETAMINOPHEN (Tylenol): Acetaminophen may be taken for pain relief or fever control. It's much safer than aspirin, offering a wider range of "safe" dosages. It is safe during . Some brand names are Tylenol, Panadol, Datril, Anacin 3, Tempra, and Liquiprin. Acetaminophen can be repeated every four hours. The following are maximum recommended dosages: >89 pounds or adults 650 mg to 900 mg Acetaminophen can be repeated every four hours. Maximum dose not to exceed 4000 mg a day. SMOKING: If you smoke, you should stop smoking. The tar and chemicals in cigarette smoke are harmful. Smoking has been shown to cause: emphysema chronic bronchitis lung cancer mouth and throat cancer stomach and pancreas cancer premature aging defects In addition, smoking increases ear and lung infections in children of smokers. FOLLOW-UP CARE: If you have been referred to a physician for follow-up care, call the physicians office for an appointment as you were instructed or within the next two days. If you experience worsening or a significant change in your symptoms, notify the physician immediately or return to the Emergency Department at any time for re-evaluation. Prescriptions: Benzonatate [Tessalon Perle 100 mg Capsule] 100 mg PO Q8HP PRN #20 cap PRN Reason: Albuterol Sulfate [Proair Hfa Inhalation Aerosol 8.5 gm Mdi] 2 puff IH Q4 PRN #1 mdi PRN Reason: Amoxicillin 500 mg PO TID #30 tablet Inhaler,Assist Device,Accesory [Optichamber] 1 each MC Q4 PRN #1 each PRN Reason: Prednisone [Deltasone 10 mg Tablet] 10 mg PO ASDIR PRN #21 tablet PRN Reason: Forms: Smoking Cessation Education, Return to Work Referrals: [facility] [Provider Group] - Follow up as needed
[2018-10-10 12:30] VITALS: BP 135/86
== END 2018-10-10 12:08 | disposition home or self-care (01) ==
LOC: ER 11:03
DX: J06.9 Acute upper respiratory infection, unspecified (principal); H66.90 Otitis media, unspecified, unspecified ear; R50.9 Fever, unspecified; R06.2 Wheezing; F17.200 Nicotine dependence, unspecified, uncomplicated; Z90.49 Acquired absence of other specified parts of digestive tract; Z90.710 Acquired absence of both cervix and uterus
CPT/HCPCS: 94640; 99283; J7512; J7620

== ENCOUNTER 2018-11-06 07:52 | Emergency (ER) | payer SELFPAY ==
[2018-11-06] MEDS ORDERED: LIDOCAINE 1.5%/EPINEPHRINE INJ-PF 30 ML SDV INJ ONE (08:58)
[2018-11-06] MEDS ORDERED: BUPIVACAINE HCL 0.5 % INJ/PF 30 ML SDV INJ ONE (08:58)
[2018-11-06] MEDS ORDERED: LIDOCAINE 1%/EPINEPHRINE INJ 20 ML VIAL INJ ONE (09:05)
--- NOTE | 2018-11-06 09:18 | ER Document Report ---
ED General - General Chief Complaint: Toothache Stated Complaint: JAW PAIN Time Seen by Provider: 11/06/18 08:29 Primary Care Provider: [facility] [Provider Group] - Follow up tomorrow Notes: Patient is a 48-year-old female with history of dental issues that presents to the emergency department for chief complaint of left lower tooth pain and swelling. Patient reports that over the past week she has been having swelling to her left lower jaw, as well as severe pain in her teeth, unable to eat or drink much as a result. She currently rates the pain as a 9 out of 10, worse with closing her teeth, she has a history of fractured teeth on that side, has not followed up with a dentist recently, states she recently moved to the area. She is having pain that radiates up towards the ear as well, she is been taking 1000 mg of ibuprofen every 8 hours as well as extra strength Tylenol in between that without much relief of her symptoms. Denies noting fevers, chills, night sweats, chest pain, shortness of breath, nausea or vomiting. Past Medical History: Sciatica Past Surgical History: Appendectomy, cholecystectomy, hysterectomy Social History: Admits to smoking cigarettes denies alcohol or drug use. Family History: Reviewed and noncontributory for presenting illness Allergies: Reviewed, see documented allergy list. REVIEW OF SYSTEMS: Other than noted above, the 12 point review of systems was reviewed with the patient and were negative, all pertinent findings are included in the HPI. PHYSICAL EXAMINATION: Vital signs reviewed, nursing noted reviewed. GENERAL: Patient appears uncomfortable on exam. HEAD: Atraumatic, normocephalic. EYES: Eyes appear normal, sclera anicteric, conjunctiva are normal. ENT: Moist mucous membranes. There are several fractured teeth in the left lower mouth, exposed nerve root of tooth #19, no discrete abscess noted. There is prominence of the soft tissues along the left mandible, tender to palpate, without erythema. TMs appear normal bilaterally. Hearing grossly intact. NECK: Normal range of motion, supple without lymphadenopathy, no presence of Stoney's angina LUNGS: Breath sounds clear to auscultation bilaterally and equal. No wheezes rales or rhonchi. HEART: Regular rate and rhythm without murmurs EXTREMITIES: Nontender, good range of motion, no pitting or edema. NEUROLOGICAL: No focal neurological deficits. Moves all extremities spontaneously Motor and sensory grossly intact on exam. PSYCH: Normal mood, normal affect. SKIN: Warm, Dry, normal turgor, no rashes or lesions noted on exposed skin TRAVEL OUTSIDE OF THE [place].S. IN LAST 30 DAYS: No - Related Data Allergies/Adverse Reactions: butorphanol [From Stadol] Allergy (Verified 11/06/18 07:53) Past Medical History - Social History Smoking Status: Current Every Day Smoker Family History: Reviewed & Not Pertinent Renal/ Medical History: Denies: Hx Peritoneal Dialysis Past Surgical History: Reports: Hx Abdominal Surgery - liver lac repair, Hx Appendectomy, Hx Cholecystectomy, Hx Hysterectomy - Immunizations Hx Diphtheria, Pertussis, Tetanus Vaccination: Yes Physical Exam - Vital signs Vitals: Temp Pulse Resp BP Pulse Ox 98.2 F 77 16 139/90 H 95 11/06/18 07:57 11/06/18 07:57 11/06/18 07:57 11/06/18 07:57 11/06/18 07:57 Course - Re-evaluation Re-evalutation: Patient seen and examined vital signs reviewed. Patient was evaluated and treated as appropriate for the patient's presenting symptoms and complaint, with consideration of any critical or life threatening conditions that may be associated with their obtained history and exam as noted above. Patient was treated with dental block, as described below, risks and benefits described to the patient and she agreed to proceed. PROCEDURE: Inferior alveolar nerve block: Using a combination of 1% lidocaine with epinephrine, and 0.5% bupivacaine, the trigone space was identified, and a 22-gauge needle was inserted, and 5 mL's of the combination solution was infiltrated, with good local anesthesia. The patient was re-evaluated and was stable Evaluation was most consistent with dental infection, will provide prescription for clindamycin, and list of dentist to follow-up with. I advised her to decrease the dosing of the ibuprofen to 600 mg every 8 hours, and not to exceed 3000 mg of acetaminophen in a 24-hour. Plan of care was discussed with the patient at this point, after careful consideration I feel that that patient can be discharged from the emergency department, the patient was educated treatments and reasons to return to the emergency department based on their presumed diagnosis as noted above, they were advised to followup with a primary care physician in 2-3 days. Patient was agreeable to plan of care. *Note is created using voice recognition software and may contain spelling, syntax or grammatical errors. - Vital Signs Vital signs: Temp Pulse Resp BP Pulse Ox 97.7 F 76 16 106/79 99 11/06/18 09:31 11/06/18 09:31 11/06/18 09:31 11/06/18 09:31 11/06/18 09:31 Discharge - Discharge Clinical Impression: Dental infection Condition: Stable Disposition: HOME, SELF-CARE Instructions: Dental Infection or Abscess ([facility]) Additional Instructions: Below is a list of dental clinics in the area. [facility] [address] [place], [place] [phone] [facility] [address] [place] [address] [facility] 324 [facility] [address] [place] [address] [facility] [email or web address] [facility] [address] [place] [address] Wednesday- 8:00am to 5:00 pm Will see patients from other [facility]. Charges based on income and family size and accepts Medicare, Medicaid, and Insurances Will pull molars [facility] Student Clinics [facility] [id number] Hours of Operation 8:00 am - 4:30 pm weekdays The following dental offices accept Medicaid: [facility] Dr. Vasquez Dr. Blackburn Dr. Figueroa Dr. Casillas Anshu Menon Lutsavage, and [facility] Dr. Hebert ([place]) Dr. Duggan ([place]) [facility] Drs. Alicia and Kwame ([place]) Dr. Cuba ([place]) [facility] Dr. May ([place]) Drs. Mascorro and ([place]) Medicaid Care Line Prescriptions: RX: Clindamycin HCl 300 mg PO QID #28 capsule Referrals: [facility] [Provider Group] - Follow up tomorrow
[2018-11-06 09:32] VITALS: BP 106/79
== END 2018-11-06 09:58 | disposition home or self-care (01) ==
LOC: ER 07:52
DX: K04.7 Periapical abscess without sinus (principal); K08.89 Other specified disorders of teeth and supporting structures; F17.210 Nicotine dependence, cigarettes, uncomplicated; Z88.5 Allergy status to narcotic agent
CPT/HCPCS: 99282; 64400; J3490 ×3

== ENCOUNTER 2019-03-13 18:19 | Emergency (ER) | payer SELFPAY ==
[2019-03-13 19:35] VITALS: BP 158/92
[2019-03-13] MEDS ORDERED: PENICILLIN V POTASSIUM 500 MG TABLET PO ONE (19:39)
[2019-03-13] MEDS ORDERED: LIDOCAINE 2% VISCOUS SOLN 20 ML UDCUP PO ONE (19:39)
--- NOTE | 2019-03-13 19:42 | ER Document Report ---
ED Oral Problem - General Chief Complaint: Jaw Pain Stated Complaint: JAW PAIN Time Seen by Provider: 03/13/19 19:30 Primary Care Provider: [facility] [Provider Group] - Follow up as needed [facility] [Provider Group] - Follow up as needed Mode of Arrival: Ambulatory Information source: Patient Notes: 48-year-old female presented to ED for complaint of dental pain since last week. She [facility]. She states the stitches removed on Wednesday. She states they gave her to ibuprofen 800 mg pills to take which she took one right after the procedure and one on . She states she is been taking 800 mg ibuprofen [id number] since then. She states they did not give her any antibiotics. She states she has had high blood pressure for a while but has not been to a doctor concerning the high blood pressure. Patient is alert oriented respirations regular and unlabored speaking in full sentences walks with even steady gait. She states she no longer smokes. TRAVEL OUTSIDE OF THE U.S. IN LAST 30 DAYS: No - HPI Patient complains to provider of: Other - Recent dental extraction 2 teeth Onset: Last week Onset: Gradual Quality of pain: Sharp, Throbbing Severity: Severe Pain Level: 5 Associated symptoms: Jaw pain, Other - Recent dental extraction Worsened by: Cold Relieved by: Nothing Similar symptoms previously: Yes Recently seen / treated by doctor/dentist: Yes - Related Data Allergies/Adverse Reactions: butorphanol [From Stadol] Allergy (Verified 11/06/18 07:53) Past Medical History - General Information source: Patient - Social History Smoking Status: Former Smoker Chew tobacco use (# tins/day): No Frequency of alcohol use: None Drug Abuse: None Family History: Reviewed & Not Pertinent Patient has suicidal ideation: No Patient has homicidal ideation: No - Past Medical History Cardiac Medical History: Reports: Hx Hypertension Pulmonary Medical History: Reports: None EENT Medical History: Reports: None Neurological Medical History: Reports: None Endocrine Medical History: Reports: None Renal/ Medical History: Reports: None Malignancy Medical History: Reports: None GI Medical History: Reports: None Musculoskeletal Medical History: Reports None Skin Medical History: Reports None Psychiatric Medical History: Reports: None Traumatic Medical History: Reports: Hx Liver Laceration Infectious Medical History: Reports: None Past Surgical History: Reports: Hx Abdominal Surgery - liver lac repair, Hx Appendectomy, Hx Cholecystectomy, Hx Hysterectomy - Immunizations Hx Diphtheria, Pertussis, Tetanus Vaccination: Yes Review of Systems - Review of Systems Constitutional: No symptoms reported EENT: No symptoms reported, Mouth pain, Dental problem Cardiovascular: No symptoms reported Respiratory: No symptoms reported Gastrointestinal: No symptoms reported Genitourinary: No symptoms reported Female Genitourinary: No symptoms reported Musculoskeletal: No symptoms reported Skin: No symptoms reported Hematologic/Lymphatic: No symptoms reported Neurological/Psychological: No symptoms reported -: Yes All other systems reviewed and negative Physical Exam - Vital signs Vitals: Temp Pulse Resp BP Pulse Ox 98.1 F 97 18 171/108 H 100 03/13/19 19:13 03/13/19 19:13 03/13/19 19:13 03/13/19 19:13 03/13/19 19:13 Interpretation: Normal - General General appearance: Appears well, Alert - HEENT Head: Normocephalic, Atraumatic Eyes: Normal Pupils: PERRL Ears: Normal External canal: Normal Tympanic membrane: Normal Sinus: Normal Nasal: Normal Mouth/Lips: Normal Teeth diagram: 1 - Recent dental extraction no bleeding no signs or symptoms of infection at this time patient states she is having a lot of swelling. No obvious swelling noted. - Respiratory Respiratory status: No respiratory distress Chest status: Nontender Breath sounds: Normal Chest palpation: Normal - Cardiovascular Rhythm: Regular Heart sounds: Normal auscultation Murmur: No - Abdominal Inspection: Normal Distension: No distension Bowel sounds: Normal Tenderness: Nontender Organomegaly: No organomegaly - Back Back: Normal, Nontender - Extremities General upper extremity: Normal inspection, Nontender, Normal color, Normal ROM, Normal temperature General lower extremity: Normal inspection, Nontender, Normal color, Normal ROM, Normal temperature, Normal weight bearing. No: Raven's sign - Neurological Neuro grossly intact: Yes Cognition: Normal Orientation: AAOx4 Tae Coma Scale Eye Opening: Spontaneous [place] Coma Scale Verbal: Oriented [place] Coma Scale Motor: Obeys Commands Tae Coma Scale Total: 15 Speech: Normal Motor strength normal: LUE, RUE, LLE, RLE Sensory: Normal - Psychological Associated symptoms: Normal affect, Normal mood - Skin Skin Temperature: Warm Skin Moisture: Dry Skin Color: Normal Course - Re-evaluation Re-evalutation: 03/13/19 21:05 Dental pain is post extraction. There is no signs or symptoms of Stoney's angina. Patient was started on antibiotics and given a prescription for antibiotics. She was also given a syringe of viscous lidocaine for the pain. Patient was instructed to follow-up with the dentist they did the surgery to her mouth. Patient verbalized understanding and agreement with treatment plan the patient was discharged home. - Vital Signs Vital signs: Temp Pulse Resp BP Pulse Ox 98.1 F 97 18 158/92 H 100 03/13/19 19:13 03/13/19 19:13 03/13/19 19:13 03/13/19 19:17 03/13/19 19:13 Discharge - Discharge Clinical Impression: Recent extraction dental pain Condition: Stable Disposition: HOME, SELF-CARE Additional Instructions: TOOTHACHE: Your pain is due to recent dental extraction. You will, therefore, be referred to a dentist. We do not have dentists on the staff at [facility]. Severe swelling or drainage around a tooth usually means a dental abscess. This also requires evaluation and treatment by the dentist, but antibiotics may be prescribed while awaiting dental treatment. You should be rechecked immediately if you develop major swelling of the face, increasing pain, a lump in the jaw or gums, headache, difficulty swallowing, or fever. PENICILLIN V K: You have been given a prescription for Penicillin VK. Your physician has determined that this is the best antibiotic for your condition. Pen VK can be taken with meals, however more of the antibiotic gets into the bloodstream if it's taken on an empty stomach. Penicillin usually has no side effects. However, allergy to penicillins is common. If you have had an allergic reaction to any drug of the penicillin fa alicia, you should never take any other penicillin. Notify your doctor at once if you develop hives, itching, swelling, faintness, or shortness of breath. Use the viscous lidocaine that I have provided to you every 3-4 hours for your pain. Do not use more often than every 3 hours. Take a small amount put it on your finger and rub it to the gums. FOLLOW-UP CARE: You have been referred for follow-up care to the dentists listed below. Call the dentists office for an appointment as you were instructed or within the next two days. If you experience worsening or a significant change in your symptoms, notify the physician immediately or return to the Emergency Department at any time for re-evaluation. [facility] [address] [place] [address] [facility] 324 [facility] 925 [facility] ([facility]) [facility] [address] [facility] [email or web address] [address] [place] [address] Wednesday- 8:00am to 5:00 pm Will see patients from other [facility]. Charges based on income and family size and accepts Medicare, Medicaid, and Insurances Will pull molars [facility] Student [facility] [address] Hours of Operation 8:00 am - 4:30 pm weekdays The following dental offices accept Medicaid: [facility] Dr. Vasquez Dr. Blackburn Dr. Figueroa Dr. Casillas Anshu Menon Lutsavage, and [facility] Dr. Hebert ([place]) Dr. Duggan ([place]) [facility] Drs. Alicia and Kwame ([place]) Dr. Cuba ([place]) [facility] Dr. May ([place]) Drs. Mascorro and ([place]) Medicaid Care Line Prescriptions: Penicillin V Potassium [Penicillin Vk 500 mg Tablet] 500 mg PO BID #20 tablet Forms: Elevated Blood Pressure, Smoking Cessation Education Referrals: [facility] [Provider Group] - Follow up as needed [facility] [Provider Group] - Follow up as needed
== END 2019-03-13 19:51 | disposition home or self-care (01) ==
LOC: ER 18:19
DX: G89.18 Other acute postprocedural pain (principal); K08.89 Other specified disorders of teeth and supporting structures; K08.409 Partial loss of teeth, unspecified cause, unspecified class; I10 Essential (primary) hypertension; Z88.5 Allergy status to narcotic agent; Z87.891 Personal history of nicotine dependence
CPT/HCPCS: 99283; J3490

== ENCOUNTER 2020-03-30 11:57 | Emergency (ER) | payer SELFPAY ==
[2020-03-30 12:28] VITALS: BP 132/99
[2020-03-30] MEDS ORDERED: NORMAL SALINE 1000 ML 1,000 ML IV ONE (12:53)
--- NOTE | 2020-03-30 12:54 | ER Document Report ---
ED General - General Chief Complaint: Abdominal Pain Stated Complaint: ABDOMINAL PAIN,DIARRHEA Notes: Patient is a 49-year-old white female with a history of prior hospitalization 2 years ago for a colonic infection that she describes because severe colonic distention. She denies ever needing an operation but states that she was hospitalized for 10 days. She reports this morning she woke at 5 AM having generalized abdominal discomfort, had a normal "hard" bowel movement and then has had approximately 10 bowel movements since that she states has had a slow gradual transition to watery diarrhea. She states the last couple episodes of diarrhea has been bloody, bright red. She denies any pain about the rectum or anus. States no history of hemorrhoids. She states that given her history of colonic involvement she was concerned so she came for evaluation. She denies any known sick contacts or recent travel. Denies any fever, chills or night sweats. No nausea or vomiting. No chest pain or shortness of breath. No urinary complaints. No known exposures to contaminated food or water sources or other new intakes. TRAVEL OUTSIDE OF THE [place].S. IN LAST 30 DAYS: No - Related Data Allergies/Adverse Reactions: butorphanol [From Stadol] Allergy (Verified 03/30/20 12:42) Past Medical History - Social History Smoking Status: Current Some Day Smoker Chew tobacco use (# tins/day): No Frequency of alcohol use: Occasional Drug Abuse: None Family History: Reviewed & Not Pertinent Patient has homicidal ideation: No - Past Medical History Cardiac Medical History: Reports: Hx Hypertension Renal/ Medical History: Denies: Hx Peritoneal Dialysis Traumatic Medical History: Reports: Hx Liver Laceration Past Surgical History: Reports: Hx Abdominal Surgery - liver lac repair, Hx Appendectomy, Hx Cholecystectomy, Hx Gynecologic Surgery, Hx Hysterectomy - Immunizations Hx Diphtheria, Pertussis, Tetanus Vaccination: Yes Review of Systems - Review of Systems Constitutional: denies: Fever EENT: denies: Throat pain Cardiovascular: denies: Chest pain Respiratory: denies: Short of breath Gastrointestinal: Abdominal pain, Diarrhea. denies: Nausea, Vomiting Genitourinary: denies: Flank pain Female Genitourinary: denies: Vaginal discharge Musculoskeletal: denies: Back pain Skin: denies: Change in color Hematologic/Lymphatic: denies: Easy bruising Neurological/Psychological: denies: Headaches Physical Exam - Vital signs Vitals: Temp 98.2 F 03/30/20 11:58 - General General appearance: Appears well, Alert In distress: None - HEENT Head: Normocephalic, Atraumatic Eyes: Normal Conjunctiva: Normal Extraocular movements intact: Yes Pupils: PERRL Mucous membranes: Dry Pharynx: Normal Neck: Supple - Respiratory Respiratory status: No respiratory distress Chest status: Nontender Breath sounds: Normal Chest palpation: Normal - Cardiovascular Rhythm: Regular Heart sounds: Normal auscultation - Abdominal Inspection: Normal Distension: No distension Bowel sounds: Normal Tenderness: Tender - Diffusely, worse in the left lower quadrant Organomegaly: No organomegaly - Back Back: CVA tenderness - Bilateral - Neurological Neuro grossly intact: Yes Cognition: Normal Orientation: AAOx4 - Psychological Associated symptoms: Normal affect, Normal mood - Skin Skin Temperature: Warm Skin Moisture: Dry Skin Color: Normal Course - Re-evaluation Re-evalutation: 03/30/20 15:46 Patient is unable to produce a stool sample despite the reported diarrhea prior to arrival. We discussed her labs and findings on CT that are consistent with a nonspecific colitis. Patient is hemodynamically stable. She wishes to be discharged home to trial supportive therapies and aggressive oral hydration and rest. She was counseled regarding the importance of follow-up in the next 24 to 48 hours for reevaluation and I advised that she return here any ER immediately with any new, persistent or worsening symptoms. She verbalized understood and agreed. - Vital Signs Vital signs: Temp Pulse Resp BP Pulse Ox 98.2 F 115 H 12 132/99 H 97 03/30/20 12:23 03/30/20 12:23 03/30/20 12:23 03/30/20 12:23 03/30/20 12:23 - Laboratory Result Diagrams: 03/30/20 12:59 03/30/20 12:59 Laboratory results interpreted by me: 03/30/20 12:59 Hgb 15.6 H Discharge - Discharge Clinical Impression: Colitis Diarrhea Qualifiers: Diarrhea type: unspecified type Qualified Code(s): R19.7 - Diarrhea, unspecified Condition: Stable Disposition: HOME, SELF-CARE Instructions: Colitis, Nonspecific ([facility]) Additional Instructions: Follow-up with your regular doctor in 2 to 3 days for reevaluation. Return here or any ER immediately with any new, persistent or worsening symptoms. Prescriptions: Dicyclomine HCl [Bentyl 20 mg Tablet] 20 mg PO QID PRN #20 tablet PRN Reason: Ondansetron [Zofran Odt 4 mg Tablet] 4 mg PO Q8 PRN #20 tab.rapdis PRN Reason:
[2020-03-30 13:09] LABS: ABSOLUTE BASOPHILS # (AUTO) 0.1 10^3/uL (0.0-0.2); ABSOLUTE EOSINOPHILS # (AUTO) 0.4 10^3/uL (0.0-0.6); ABSOLUTE LYMPHOCYTES (AUTO) 1.7 10^3/uL (0.5-4.7); ABSOLUTE MONOCYTES (AUTO) 0.5 10^3/uL (0.1-1.4); ABSOLUTE NEUT (AUTO) 6.3 10^3/uL (1.7-8.2); BASOPHILS % (AUTO) 0.9 % (0-2); EOSINOPHILS % (AUTO) 4.1 % (0-6); HEMATOCRIT 45.4 % (36.0-47.0); HEMOGLOBIN 15.6 g/dL (12.0-15.5); LYMPHOCYTES % (AUTO) 18.9 % (13-45); MEAN CORPUSCULAR HEMOGLOBIN 30.1 pg (27.0-33.4); MEAN CORPUSCULAR HGB CONC 34.4 g/dL (32.0-36.0); MEAN CORPUSCULAR VOLUME 88 fl (80-97); MONOCYTES % (AUTO) 5.1 % (3-13); PLATELET COUNT 289 10^3/uL (150-450); RED BLOOD COUNT 5.19 10^6/uL (3.72-5.28); RED CELL DISTRIBUTION WIDTH 13.8 % (11.5-14.0); TOTAL CELLS COUNTED % (AUTO) 100 %; WHITE BLOOD COUNT 8.9 10^3/uL (4.0-10.5)
[2020-03-30 13:24] LABS: APPEARANCE,URINE CLEAR; BILIRUBIN,URINE NEGATIVE (NEGATIVE); COLOR,URINE YELLOW; GLUCOSE, URINE NEGATIVE (NEGATIVE); KETONES,URINE NEGATIVE (NEGATIVE); PROTEIN,URINE NEGATIVE (NEGATIVE); URINE SPECIFIC GRAVITY 1.009; UROBILINOGEN,URINE NEGATIVE mg/dL (<2.0)
[2020-03-30 13:30] LABS: ALBUMIN 4.6 g/dL (3.5-5.0); ALKALINE PHOSPHATASE 60 U/L (38-126); ANION GAP 6 (5-19); ASPARTATE AMINO TRANSFERASE 23 U/L (14-36); BILIRUBIN,TOTAL 0.5 mg/dL (0.2-1.3); BLOOD UREA NITROGEN 13 mg/dL (7-20); CALCIUM 9.6 mg/dL (8.4-10.2); CARBON DIOXIDE 26 mmol/L (22-30); CHLORIDE 105 mmol/L (98-107); GLUCOSE 84 mg/dL (75-110); POTASSIUM 4.5 mmol/L (3.6-5.0); TOTAL PROTEIN 7.3 g/dL (6.3-8.2)
--- NOTE | 2020-03-30 14:19 | RADIOLOGY REPORT (SQ) ---
EXAM DESCRIPTION: CT ABD/PELVIS WITH IV ONLY IMAGES COMPLETED DATE/TIME: 03/30/2020 1:59 pm REASON FOR STUDY: fall, rib fx, RUQ and side pain COMPARISON: None. TECHNIQUE: CT scan of the abdomen and pelvis performed using helical scanning technique with dynamic intravenous contrast injection. No oral contrast. Images reviewed with lung, soft tissue, and bone windows. Reconstructed coronal and sagittal MPR images reviewed. Delayed images for evaluation of the urinary system also acquired. All images stored on PACS. All CT scanners at this facility use dose modulation, iterative reconstruction, and/or weight based d osing when appropriate to reduce radiation dose to as low as reasonably achievable (ALARA). [facility]: Dose Right [facility]: CareDose [facility]: Dose Right [facility]: Teradose 4D [facility]: UserApp CONTRAST TYPE AND DOSE: contrast/concentration: Isovue 350.00 mmol/ml; Total Contrast Delivered: 73. 0 ml; Total Saline Delivered: 66.0 ml RENAL FUNCTION: GFR > 60. RADIATION DOSE: CT Rad equipment meets quality standard of care and radiation dose reduction techniq ues were employed. CTDIvol: 7.2 - 9.2 mGy. DLP: 906 mGy-cm.. LIMITATIONS: None. FINDINGS: LOWER CHEST: Calcified granuloma in the right lung base with mild areas of scar. No acute findings. LIVER: Mildly fatty. Otherwise normal. SPLEEN: Small calcified granulomas, otherwise normal. PANCREAS: No masses. No significant calcifications. No adjacent inflammation or peripancreatic fluid collections. Pancreatic duct not dilated. GALLBLADDER: Not seen, probably absent. ADRENAL GLANDS: No significant masses or asymmetry. RIGHT KIDNEY AND URETER: No solid masses. No significant calcification. No hydronephrosis or hydroure ter. LEFT KIDNEY AND URETER: No solid masses. No significant calcification. No hydronephrosis or hydrouret er. AORTA AND VESSELS: No aneurysm. No dissection. Renal arteries, SMA, celiac without stenosis. RETROPERITONEUM: No retroperitoneal adenopathy, hemorrhage or masses. BOWEL AND PERITONEAL CAVITY: No mechanical bowel obstruction. No ascites or abnormal gas. Slight wa ll thickening and pericolonic fat haziness in the descending colon. This could reflect mild colitis. APPENDIX: Not visualized. PELVIS: No mass. No free fluid. Normal bladder. ABDOMINAL WALL: No masses. No hernias. BONES: No significant or acute findings. OTHER: No other significant finding. IMPRESSION: 1. Potential mild descending colitis. 2. Otherwise no acute or suspicious abdominopelvic abnormality. TECHNICAL DOCUMENTATION: JOB ID: [id number] Quality ID # [id number]: Final reports with documentation of one or more dose reduction techniques (e.g., Au tomated exposure control, adjustment of the mA and/or kV according to patient size, use of iterative reconstruction technique) 2010 [employer]- All Rights Reserved Reading location - IP/workstation name: [email or web address]
== END 2020-03-30 16:35 | disposition home or self-care (01) ==
LOC: ER 11:57
DX: K52.9 Noninfective gastroenteritis and colitis, unspecified (principal); K92.1 Melena; R10.817 Generalized abdominal tenderness; R10.9 Unspecified abdominal pain; F17.200 Nicotine dependence, unspecified, uncomplicated; I10 Essential (primary) hypertension; Z88.6 Allergy status to analgesic agent; Z88.5 Allergy status to narcotic agent
CPT/HCPCS: 99284; 96360; 36415; 83690; 84703; 85025; 80053; 81001; 74177; J7030